=== PATIENT | female | born 1955 | race Caucasian/White ===

== ENCOUNTER → 2016-10-26 | Outpatient (CLI) | payer OTHER ==
[~2016-10-26] MED LIST: ASPEC81; CETI10TA84; CLTP; DYZ; INSDGI; LIPITOR; LISIPOW; MAGNESIUM; MULT-506; NVLGI; THYROXINE; TRIA3AER; ZINC
--- NOTE | 2016-10-26 16:46 | MAMMOGRAPHY REPORT ---
BILATERAL DIGITAL SCREENING MAMMOGRAM WITH CAD: 10/26/2016 CLINICAL HISTORY: Routine screening. Patient has no complaints. TECHNIQUE: Current study was also evaluated with a Computer Aided Detection (CAD) system. Bilatera l CC and MLO views were obtained. COMPARISON: Comparison is made to exams dated: 09/25/2015 mammogram, 08/08/2013 mammogram, 09/24/2014 m ammogram, 08/06/2012 mammogram, 08/02/2011 mammogram, and 03/02/2007 mammogram - [facility]. BREAST COMPOSITION: The tissue of both breasts is heterogeneously dense, which may obscure small ma sses. FINDINGS: No suspicious masses, calcifications, or areas of architectural distortion are noted in e ither breast. There has been no significant interval change compared to prior exams. Small nodular asymmetry seen within the right superior posterior breast on the MLO view is stable compared to the prior 2013 exam, and considered benign given long-term stability and felt to represent normal fibrog landular tissue. Bilateral benign-appearing calcifications are again noted. IMPRESSION: ACR BI-RADS CATEGORY 2: BENIGN There is no mammographic evidence of malignancy. A 1 year screening mammogram is recommended. The p atient will receive written notification of the results. Approximately 10% of breast cancers are not detected with mammography. A negative mammographic repor t should not delay biopsy if a clinically suggestive mass is present. Chrystal Cerna M.D. ah/:10/26/2016 15:51:00 Meat Molder: Michelle MICHAEL(Jorge)(Criss), [facility] letter sent: Normal 1/2 BI-RADS Code: ACR BI-RADS Category 2: Benign
== END | disposition home or self-care (01) ==
LOC: C.MAMM 07:22
PROVIDERS: ATTEND Internal Medicine
DX: Z12.31 Encounter for screening mammogram for malignant neoplasm of breast (principal)

== ENCOUNTER → 2016-11-28 | Outpatient (CLI) | payer OTHER | END | disposition home or self-care (01) | LOC: C.PAPS 14:10 | PROVIDERS: ATTEND Obstetrics & Gynecology | DX: Z12.4 Encounter for screening for malignant neoplasm of cervix (principal) ==

== ENCOUNTER → 2017-01-30 | Outpatient (CLI) | payer OTHER ==
[2017-01-30 12:18] LABS: URINE APPEARANCE CLEAR (CLEAR); URINE BILIRUBIN NEG (NEG); URINE COLOR YELLOW; URINE NITRITE NEG (NEG); UROBILINOGEN NEG (NEG)
[2017-01-30 12:31] LABS: MANUAL MICROSCOPIC REQUIRED? NO; REVIEW REQ? NO
[2017-01-30 12:49] LABS: ESTIMATED AVERAGE GLUCOSE 131 mg/dl; HA1C FLAG Normal (Normal)
[2017-01-30 13:13] LABS: ALT/SGPT 27 U/L (12-78); AST/SGOT 21 U/L (15-37); BLOOD UREA NITROGEN 24 mg/dl (7-18); BUN/CREATININE RATIO 27.9 (10-20); CALCIUM 9.6 mg/dl (8.5-10.1); CARBON DIOXIDE 30 mmol/L (21-32); CHLORIDE 103 mmol/L (98-107); CHOLESTEROL 197 mg/dl (0-200); CREATININE 0.85 mg/dl (0.60-1.20); GLUCOSE 96 mg/dl (70-99); POTASSIUM 4.4 mmol/L (3.5-5.1); SODIUM 138 mmol/L (136-145)
[2017-01-30 13:23] LABS: CHOLESTEROL/HDL RATIO 2.3; HDL CHOLESTEROL 86 mg/dl; LDL CHOLESTEROL CALCULATED 106 mg/dl; TRIGLYCERIDES 27 mg/dl (0-150); VERY LOW DENSITY LIPOPROT CALC 5 mg/dl
== END | disposition home or self-care (01) ==
LOC: C.LAB1850 10:15
PROVIDERS: ATTEND Internal Medicine
DX: E78.5 Hyperlipidemia, unspecified (principal); E03.9 Hypothyroidism, unspecified; E10.9 Type 1 diabetes mellitus without complications; N39.0 Urinary tract infection, site not specified

== ENCOUNTER → 2017-07-17 | Outpatient (CLI) | payer OTHER ==
[2017-07-17 16:30] LABS: BLOOD UREA NITROGEN 17 mg/dl (7-18); BUN/CREATININE RATIO 23.8 (10-20); CALCIUM 8.9 mg/dl (8.5-10.1); CARBON DIOXIDE 31 mmol/L (21-32); CHLORIDE 96 mmol/L (98-107); CREATININE 0.71 mg/dl (0.60-1.20); GLUCOSE 152 mg/dl (70-99); POTASSIUM 3.8 mmol/L (3.5-5.1); SODIUM 133 mmol/L (136-145)
== END | disposition home or self-care (01) ==
LOC: C.LAB1850 15:24
PROVIDERS: ATTEND Internal Medicine
DX: E55.9 Vitamin D deficiency, unspecified (principal); E10.9 Type 1 diabetes mellitus without complications; E03.9 Hypothyroidism, unspecified

== ENCOUNTER → 2017-12-26 | Outpatient (CLI) | payer OTHER ==
--- NOTE | 2017-12-27 14:22 | MAMMOGRAPHY REPORT ---
BILATERAL DIGITAL SCREENING MAMMOGRAM TOMOSYNTHESIS WITH CAD: 12/26/2017 CLINICAL HISTORY: Routine screening. TECHNIQUE: Breast tomosynthesis in addition to standard 2D mammography was performed. Current study was also evaluated with a Computer Aided Detection (CAD) system. COMPARISON: Comparison is made to exams dated: 10/26/2016 mammogram, 09/25/2015 mammogram, 09/24/2014 m ammogram, 08/08/2013 mammogram, 08/06/2012 mammogram, and 08/02/2011 mammogram - [facility]. BREAST COMPOSITION: The tissue of both breasts is heterogeneously dense, which may obscure small mas ses. FINDINGS: The parenchymal pattern is unchanged. No developing mass, architectural distortion or clus ter of suspicious microcalcifications is seen in either breast. IMPRESSION: ACR BI-RADS CATEGORY 2: BENIGN There is no mammographic evidence of malignancy. A 1 year screening mammogram is recommended. The pa tient will receive written notification of the results. Approximately 10% of breast cancers are not detected with mammography. A negative mammographic report should not delay biopsy if a clinically suggestive mass is present. Patricia Parker M.D. ay/:12/26/2017 19:13:43 Flexboard Operator: Kenny MICHAEL(R)(M), [facility] letter sent: Normal 1/2 BI-RADS Code: ACR BI-RADS Category 2: Benign
== END | disposition home or self-care (01) ==
LOC: C.MAMM 07:21
PROVIDERS: ATTEND Internal Medicine
DX: Z12.31 Encounter for screening mammogram for malignant neoplasm of breast (principal)

== ENCOUNTER 2023-06-02 13:31 | Observation (INO) ==
--- NOTE | 2023-06-02 13:36 | ED Triage Note ---
Date of Service June 02, 2023 History of Present Illness This patient was briefly evaluated while in triage. An abbreviated physical exam was performed. This patient is a 67-year-old Female who presents to the ED for evaluation of an increased blood sugar. The patient is concerned that she has COVID. She has also had nausea and vomiting as well. Patient does have an insulin pump at home, and administered insulin around 12:45. The patient reports that she has been feeling ill for the past few days. Patient has also had indigestion as well. Patient denies any current pain, reporting weakness. Physical Exam CONSTITUTIONAL: Healthy and well nourished. HEENT: No scleral icterus or conjunctival injection. RESPIRATORY: Clear to auscultation bilaterally with no wheezing, crackles, rhonchi or stridor. CARDIOVASCULAR: Regular rate and rhythm with no murmurs, rubs or gallops. GASTROINTESTINAL: Bowel sounds present in all quadrants. MUSCULOSKELETAL: Full range of motion of all joints without discomfort. INTEGUMENTARY: No rash or other significant dermatologic conditions noted. HEMATOLOGIC: No ecchymosis or petechiae. PSYCHIATRIC: Positive affect. NEUROLOGIC: No focal neurologic deficits noted. Initial orders for labs and / or imaging were placed and patient was placed in the waiting area until a bed is available. Please see further documentation for the full ED course.
[2023-06-02] MEDS ORDERED: SODIUM CHLORIDE 0.9% 1,000 ML IV SCH (14:15)
--- NOTE | 2023-06-02 14:27 | XRay Report ---
XR chest 1V not portable CLINICAL HISTORY: Weakness. COMPARISON STUDY: Chest radiograph February 18, 2019. FINDINGS: Lung volumes are normal. Lungs are clear. There is no pneumothorax or pleural effusion. Car diac size is normal. Mediastinal contours are normal. There is no evidence for pulmonary edema. IMPRESSION: No acute cardiopulmonary findings. ACT 112: Negative or not required by law. Electronically signed by: Maurilio Yancey M.D. 06/02/2023 2:25 PM
[2023-06-02 14:41] LABS: Alanine Aminotransferase 21 U/L (7-52); Albumin Globulin Ratio 1.4 (0.9-2); Albumin Level 4.5 gm/dl (3.4-5.0); Alkaline Phosphatase 70 U/L (34-104); Anion Gap 23 (3-11); Aspartate Aminotransferase 31 U/L (13-39); BUN Creatinine Ratio 34.5 (10-20); Bilirubin,Total 0.8 mg/dl (0.2-1.0); Blood Urea Nitrogen 41 mg/dl (6-23); Calcium 10.8 mg/dl (8.6-10.3); Carbon Dioxide 18 mmol/L (21-32); Chloride 91 mmol/L (98-107); Est GFR (African American) 54.7 ml/min; Est GFR (Non-African American) 47.2 ml/min; Globulin 3.3 gm/dl (2.5-4.0); Glucose 531 mg/dl (70-99(Fasting)); Potassium 4.4 mmol/L (3.5-5.1); Sodium 132 mmol/L (136-145); Total Protein 7.8 gm/dl (6.0-8.3)
[2023-06-02 14:45] LABS: Troponin I High Sensitivity 5.5 pg/ml (0-14)
[2023-06-02 14:53] LABS: Thyroid Stimulating Hormone 0.831 uIu/ml (0.300-4.500)
[2023-06-02 14:54] LABS: Influenza A virus by PCR Negative (Neg); Influenza B virus by PCR Negative (Neg); RSV by PCR Negative (Neg); SARS CoV2 RNA(COVID-19) Ceph NEGATIVE (Negative)
[2023-06-02] MEDS ORDERED: ONDANSETRON INJ 2 MG/ML 2 ML VIAL ONE (14:59)
[2023-06-02] MEDS ORDERED: SODIUM CHLORIDE 0.9% 1,000 ML IV ONE (15:00)
[2023-06-02] MEDS ORDERED: ONDANSETRON INJ 2 MG/ML 2 ML VIAL IV STA (15:00)
--- NOTE | 2023-06-02 15:00 | Emergency Department Note ---
Impression & Plan DKA (diabetic ketoacidosis), Ketonuria, Vomiting, Leukocytosis ED Provider Note HISTORY OF PRESENT ILLNESS: Patient is a 67-year-old female presenting with vomiting. Patient reports that she started vomiting at 10 AM this morning. Denies any abdominal pain. She is a type I diabetic on an insulin pump. She reports that her sugars have been running in the 400s for the last 48 hours. She gave a bolus at 1245. Denies any chest pain or shortness of breath. Denies any fevers. Denies any recent sick contact exposures ROS: as above PHYSICAL EXAM: Constitutional: Patient appears in no acute distress. Patient is actively vomiting HENT: Head: Normocephalic and atraumatic. Eyes: EOMI, PERRL Mouth/Throat: Mucous membranes moist. Neck: Trachea midline. Neck supple. Cardiovascular: RRR, No murmurs, rubs or gallops. Intact distal pulses. Pulmonary/Chest: No respiratory distress. Breath sounds clear and equal bilaterally. No wheezes or rales. Abdominal: Abdomen soft, no tenderness, rebound or guarding. Musculoskeletal: No edema, tenderness or deformity noted. Skin: Warm and dry. No rash, erythema, pallor or cyanosis Psychiatric: Appropriate mood and affect for situation. Neurological: Alert and keenly responsive. CN II-XII grossly intact, moving all extremities equally and fully. MDM: - Vitals signs stable. - History obtained via patient. Patient presents with reports she started vomiting earlier today. Denies any abdominal pain. She is a type I diabetic on an insulin pump. Reports her sugars have been running over 400 for the last 48 hours. Denies any fevers. Denies any recent sick contact exposures. - Chronic conditions affecting care: HTN; HLD; hypothyroidism; DM-1 - Differential diagnoses include, but are not limited to: Viral syndrome; acute cholecystitis; colitis; small bowel obstruction; electrolyte abnormality; DKA - Order placed for continuous cardiac monitoring. At this time, monitor showed rate of 101 bpm with normal sinus rhythm, per my interpretation. - External medical records reviewed. Patient's primary care visit note dated 04/26/2022 was reviewed. - Laboratory workup interpreted by myself showed leukocytosis (WC 17.28); elevated anion gap (23); hyperglycemia (glucose 531); normal magnesium; normal potassium; normal troponin; normal TSH - UA negative for infection, but noted to have significant ketonuria - COVID/flu/RSV negative - CXR negative for pneumonia, per my interpretation - VBG shows acidosis (pH 7.21) - CT abdomen/pelvis with IV contrast negative for acute pathology. - Patient given 2L NS in ER. Given 4 mg IV zofran for vomiting. - Patient's insulin pump was removed. She was transitioned to an insulin drip in the ER. She was given 1 L Plasma-Lyte bolus. - Discussion was had with social worker psychiatric about patient's case and need for admission - Hospitalist consulted for admission - Patient admitted to [facility] service for further evaluation and management. I provided 48 minutes of critical care time to this patient's care outside of billable procedures. ASSESSMENT AND PLAN: Diagnosis: DKA; vomiting; leukocytosis; ketonuria Plan: admit Past Med/Surg History Medical History (Updated 06/02/23 @ 18:04 by Amelia Garcia MD) Angioma Benign essential hypertension COVID-19 Diabetes mellitus type 1 INSULIN PUMP. Gastroparesis GERD (gastroesophageal reflux disease) Hyperlipidemia Hypothyroidism Insulin pump in place Rheumatoid arthritis Seborrheic keratosis Vitamin D deficiency Surgical History History of bilateral tubal ligation History of carpal tunnel release bilt History of colonoscopy History of esophagogastroduodenoscopy (EGD) Family History Mother Diabetes Allergies Hypothyroidism Myocardial infarction Family hx colonic polyps Stroke Sister Hypothyroidism Father Parkinson disease Son Allergies Daughter Allergies Other No family history of adverse response to anesthesia Denies family history of Ovarian cancer Prostate cancer Breast cancer Lung cancer Colorectal cancer Social History Smoking Status: Never smoker Cigarettes Per Day: 0; Second Hand Exposure: No (mom smoked); Do You Dip or Chew Tobacco: No; Hx Alcohol Use: No Hx Substance Use: No Preferred Language: Arabic Communication Ability: Effective Visual Impairment: Limited Hearing Ability: Normal Blind Hooker Required: No Beliefs That Will Affect Care: None marital status: Single Current Living Situation: Significant Other current occupational status: retired How many Children do You have: 2 Feels Safe at Home: Yes Childhood Exposure to Second-Hand Smoke: Yes caffeine: No Dental Care, Regularly: Yes Physical Activity Frequency: Daily Seatbelt Use: always Sunscreen Use: Yes Assistive Devices: Glasses Allergies Allergies Allergy/AdvReac Type Severity Reaction Status Date / Time ezetimibe [From Zetia] Allergy Intermediate heart Verified 06/02/23 17:32 racing nickel Allergy Mild Rash Verified 06/02/23 17:32 Home Meds Home Medications Medication Instructions Recorded Confirmed aspirin 81 mg tablet,delayed 81 mg PO QAM 12/24/18 06/02/23 release (Aspir-) biotin 1,000 mcg chewable tablet 1,000 mcg PO QAM 12/24/18 06/02/23 cetirizine 10 mg tablet (Zyrtec) 10 mg PO DAILY PRN Allergy Symptoms 12/24/18 06/02/23 cholecalciferol (vitamin D3) 25 1,000 unit PO QPM 12/24/18 06/02/23 mcg (1,000 unit) capsule (Vitamin D3) cyanocobalamin (vitamin B-12) 1,000 mcg PO QAM 12/24/18 06/02/23 1,000 mcg tablet (Vitamin B-12) lactobacillus combination no.4 3 3,000 mmu cells PO QPM 12/24/18 06/02/23 billion cell capsule (Probiotic) multivitamin 1 tab PO QAM 12/24/18 06/02/23 omega-3 acid ethyl esters 1 gram 1 cap PO BID 01/10/19 06/02/23 capsule folic acid 1 mg tablet 1 mg PO QPM 02/27/19 06/02/23 melatonin 3 mg capsule 3 mg PO HS PRN Sleep 02/07/20 06/02/23 Eye Ointment 1 applic PO HS 06/02/23 06/02/23 fluticasone propionate 50 1 spray intranasal DAILY PRN Nasal 06/02/23 06/02/23 mcg/actuation nasal Congestion spray,suspension (Allergy Relief (fluticasone)) methotrexate sodium 2.5 mg tablet 10 mg PO AMPM 06/02/23 06/02/23 Previous Rx's Medication Instructions Recorded blood sugar diagnostic #400 ea 03/03/21 blood sugar diagnostic (Predictus BioSciencesTouch #400 ea 10/11/22 Ultra Test strips) blood-glucose meter (Predictus BioSciencesTouch #1 ea 10/11/22 Ultra2 Meter) esomeprazole magnesium 20 mg 20 mg PO DAILY #90 caps 10/12/22 capsule,delayed release (Nexium) insulin pump cart,cont inf,BT #30 ea 10/12/22 (Omnipod Dash Pods (Gen 4) subcutaneous cartridge) blood sugar diagnostic (Blood #400 ea 10/17/22 Glucose Test strips) blood-glucose meter (Blood Glucose #1 ea 10/17/22 Monitoring kit) insulin aspart U-100 100 unit/mL 130 unit (1.3 mL) subcut DAILY 01/31/23 subcutaneous solution (Novolog #110 mL U-100 Insulin aspart) lisinopril 20 mg tablet 20 mg PO QAM #90 tabs 02/21/23 triamterene 37.5 1 tab PO QAM #90 tabs 03/13/23 mg-hydrochlorothiazide 25 mg tablet pravastatin 40 mg tablet 40 mg PO QPM #90 tabs 04/03/23 clobetasol 0.05 % topical ointment 1 applic topical BID #30 grams 05/17/23 levothyroxine 112 mcg tablet 112 mcg PO QAM #90 tabs 05/26/23 Results & Data (ED) Vital Signs Vital Signs - 24 hr 06/02/23 13:34 06/02/23 14:34 06/02/23 15:02 Temperature 36.7 C Temperature Source Temporal Artery Scan Pulse Rate 103 H 88 Pulse Rate [Apical] 101 H Pulse Rhythm Pulse Rhythm [Apical] Regular Pulse Strength [Apical] Normal Respiratory Rate 18 17 Respiratory Effort / Characteristics Non-Labored Respiratory Depth Normal Respiratory Pattern Regular Blood Pressure 124/54 L Blood Pressure [Right Arm] 131/57 L Blood Pressure Mean 77 Blood Pressure Mean [Right Arm] 81 Blood Pressure Position [Right Arm] Semi-fowlers Pulse Oximetry 98 97 Oxygen Delivery Method Room Air Room Air Sepsis Recent Fever Within 48 Hours No Sepsis New/Unexplained Change in Mental Status No Sepsis Action Taken by Nursing No Action Required 06/02/23 15:02 Temperature Temperature Source Pulse Rate 101 H Pulse Rate [Apical] Pulse Rhythm Regular Pulse Rhythm [Apical] Pulse Strength [Apical] Respiratory Rate 17 Respiratory Effort / Characteristics Respiratory Depth Respiratory Pattern Blood Pressure Blood Pressure [Right Arm] Blood Pressure Mean Blood Pressure Mean [Right Arm] Blood Pressure Position [Right Arm] Pulse Oximetry 98 Oxygen Delivery Method Room Air Sepsis Recent Fever Within 48 Hours Sepsis New/Unexplained Change in Mental Status Sepsis Action Taken by Nursing Laboratory Data 06/02/23 14:40 06/02/23 14:00 Lab Results 06/02/23 06/02/23 06/02/23 Range/Units 13:52 14:00 14:00 WBC Cancelled RBC Cancelled Hgb Cancelled Hct Cancelled MCV Cancelled MCH Cancelled MCHC Cancelled RDW Std Deviation Cancelled RDW Coeff of Ervin Cancelled Plt Count Cancelled MPV Cancelled Immature Gran % (Auto) Cancelled Neut % (Auto) Cancelled Lymph % (Auto) Cancelled Leslie % (Auto) Cancelled Eos % (Auto) Cancelled Baso % (Auto) Cancelled Neut # (Auto) Cancelled Lymph # (Auto) Cancelled Leslie # (Auto) Cancelled Eos # (Auto) Cancelled Baso # (Auto) Cancelled Immature Gran # (Auto) Cancelled Absolute Nucleated RBC Cancelled Nucleated RBC % (auto) Cancelled Neutrophils % (Manual) Cancelled Band Neutrophils % Cancelled Lymphocytes % (Manual) Cancelled Prolymphocyte % Cancelled Reactive Lymphs % (Man) Cancelled Monocytes % (Manual) Cancelled Eosinophils % (Manual) Cancelled Basophils % (Manual) Cancelled Metamyelocytes % (Man) Cancelled Myelocytes % (Man) Cancelled Promyelocytes % (Man) Cancelled Blast Cells % (Manual) Cancelled Plasma Cell % (Manual) Cancelled Other Cells % Cancelled Nucleated RBC % Cancelled Neutrophils # (Manual) Cancelled Band Neutrophils # Cancelled Total Absolute Neuts Cancelled Lymphocytes # (Manual) Cancelled Prolymphocyte # Cancelled Reactive Lymphs # Cancelled Total Abs Lymphocytes Cancelled Monocytes # (Manual) Cancelled Eosinophils # (Manual) Cancelled Basophils # (Manual) Cancelled Metamyelocytes # (Man) Cancelled Myelocytes # (Manual) Cancelled Promyelocytes # (Man) Cancelled Blast Cells # (Man) Cancelled Plasma Cell # (Manual) Cancelled Other Cells # Cancelled Nucleated RBCs # (Man) Cancelled Hypersegmented Neuts Cancelled Hyposegmented Neuts Cancelled Hypogranular Neuts Cancelled Large Granular Lymphs Cancelled # Lrg Granular Lymphs Cancelled Hairy Cells Cancelled Smudge Cells Cancelled Toxic Granulation Cancelled Toxic Vacuolation Cancelled Dohle Bodies Cancelled Say Rods Cancelled Platelet Estimate Cancelled Hypogranular Platelets Cancelled Giant Platelets Cancelled Platelet Satelliting Cancelled RBC Morphology Cancelled Polychromasia Cancelled Hypochromasia Cancelled Poikilocytosis Cancelled Basophilic Stippling Cancelled Anisocytosis Cancelled Microcytosis Cancelled Macrocytosis Cancelled Spherocytes Cancelled Pappenheimer Bodies Cancelled Sickle Cells Cancelled Target Cells Cancelled Tear Drop Cells Cancelled Ovalocytes Cancelled Stomatocytes Cancelled Gilliam-Eunola Bodies Cancelled Echinocytes Cancelled Acanthocytes (Spur) Cancelled Rouleaux Cancelled RBC Agglutinates Cancelled Schistocytes Cancelled Sezary Cell Cancelled PT (9.0-12.0) Seconds INR (0.9-1.1) VBG pH (7.36-7.41) VBG pCO2 (38-50) mmHg VBG pO2 mmHg VBG HCO3 mmol/L VBG O2 Saturation % VBG Base Excess mEq/L Sodium 132 L (136-145) mmol/L Potassium 4.4 (3.5-5.1) mmol/L Chloride 91 L (98-107) mmol/L Carbon Dioxide 18 L (21-32) mmol/L Anion Gap 23 H (3-11) BUN 41 H (6-23) mg/dl Creatinine 1.19 (0.6-1.2) mg/dl Est Cr Clr Drug Dosing Not Reportable Est GFR ( Amer) 54.7 ml/min Est GFR (Non-Af Amer) 47.2 ml/min BUN/Creatinine Ratio 34.5 H (10-20) Glucose 531 H* (70-99(Fasting)) mg/dl POC Glucose 498 H* (70-99) mg/dl Calcium 10.8 H (8.6-10.3) mg/dl Magnesium 2.0 (1.7-2.4) mg/dl Total Bilirubin 0.8 (0.2-1.0) mg/dl AST 31 (13-39) U/L ALT 21 (7-52) U/L Alkaline Phosphatase 70 (34-104) U/L Troponin I High Sens 5.5 (0-14) pg/ml Total Protein 7.8 (6.0-8.3) gm/dl Albumin 4.5 (3.4-5.0) gm/dl Globulin 3.3 (2.5-4.0) gm/dl Albumin/Globulin Ratio 1.4 (0.9-2) TSH 0.831 (0.300-4.500) uIu/ml Urine Color Urine Appearance (Clear) Urine pH (4.5-7.5) Ur Specific [place] (1.000-1.030) Urine Protein (Negative) Urine Glucose (UA) (Negative) Urine Ketones (Negative) Urine Blood (Negative) Urine Nitrite (Negative) Urine Bilirubin (Negative) Urine Urobilinogen (Negative) Ur Leukocyte Esterase (Negative) SARS-CoV-2 (PCR) (Negative) Influenza Type A (PCR) (Neg) Influenza Type B (PCR) (Neg) RSV (RT-PCR) (Neg) Blood Parasites ID Cancelled 06/02/23 06/02/23 06/02/23 Range/Units 14:00 14:00 14:40 WBC 17.28 H RBC 3.79 L Hgb 12.9 Hct 37.0 MCV 97.6 MCH 34.0 MCHC 34.9 RDW Std Deviation 45.8 RDW Coeff of Ervin 12.8 Plt Count 253 MPV 10.6 Immature Gran % (Auto) 0.5 Neut % (Auto) 87.0 Lymph % (Auto) 8.0 Leslie % (Auto) 4.1 Eos % (Auto) 0.1 Baso % (Auto) 0.3 Neut # (Auto) 15.04 H Lymph # (Auto) 1.38 Leslie # (Auto) 0.71 H Eos # (Auto) 0.01 Baso # (Auto) 0.05 Immature Gran # (Auto) 0.09 Absolute Nucleated RBC Nucleated RBC % (auto) Neutrophils % (Manual) Band Neutrophils % Lymphocytes % (Manual) Prolymphocyte % Reactive Lymphs % (Man) Monocytes % (Manual) Eosinophils % (Manual) Basophils % (Manual) Metamyelocytes % (Man) Myelocytes % (Man) Promyelocytes % (Man) Blast Cells % (Manual) Plasma Cell % (Manual) Other Cells % Nucleated RBC % Neutrophils # (Manual) Band Neutrophils # Total Absolute Neuts Lymphocytes # (Manual) Prolymphocyte # Reactive Lymphs # Total Abs Lymphocytes Monocytes # (Manual) Eosinophils # (Manual) Basophils # (Manual) Metamyelocytes # (Man) Myelocytes # (Manual) Promyelocytes # (Man) Blast Cells # (Man) Plasma Cell # (Manual) Other Cells # Nucleated RBCs # (Man) Hypersegmented Neuts Hyposegmented Neuts Hypogranular Neuts Large Granular Lymphs # Lrg Granular Lymphs Hairy Cells Smudge Cells Toxic Granulation Toxic Vacuolation Dohle Bodies Say Rods Platelet Estimate Hypogranular Platelets Giant Platelets Platelet Satelliting RBC Morphology Polychromasia Hypochromasia Poikilocytosis Basophilic Stippling Anisocytosis Microcytosis Macrocytosis Spherocytes Pappenheimer Bodies Sickle Cells Target Cells Tear Drop Cells Ovalocytes Stomatocytes Gilliam-Eunola Bodies Echinocytes Acanthocytes (Spur) Rouleaux RBC Agglutinates Schistocytes Sezary Cell PT 11.0 (9.0-12.0) Seconds INR 1.0 (0.9-1.1) VBG pH (7.36-7.41) VBG pCO2 (38-50) mmHg VBG pO2 mmHg VBG HCO3 mmol/L VBG O2 Saturation % VBG Base Excess mEq/L Sodium (136-145) mmol/L Potassium (3.5-5.1) mmol/L Chloride (98-107) mmol/L Carbon Dioxide (21-32) mmol/L Anion Gap (3-11) BUN (6-23) mg/dl Creatinine (0.6-1.2) mg/dl Est Cr Clr Drug Dosing Est GFR ( Amer) ml/min Est GFR (Non-Af Amer) ml/min BUN/Creatinine Ratio (10-20) Glucose (70-99(Fasting)) mg/dl POC Glucose (70-99) mg/dl Calcium (8.6-10.3) mg/dl Magnesium (1.7-2.4) mg/dl Total Bilirubin (0.2-1.0) mg/dl AST (13-39) U/L ALT (7-52) U/L Alkaline Phosphatase (34-104) U/L Troponin I High Sens (0-14) pg/ml Total Protein (6.0-8.3) gm/dl Albumin (3.4-5.0) gm/dl Globulin (2.5-4.0) gm/dl Albumin/Globulin Ratio (0.9-2) TSH (0.300-4.500) uIu/ml Urine Color Urine Appearance (Clear) Urine pH (4.5-7.5) Ur Specific [place] (1.000-1.030) Urine Protein (Negative) Urine Glucose (UA) (Negative) Urine Ketones (Negative) Urine Blood (Negative) Urine Nitrite (Negative) Urine Bilirubin (Negative) Urine Urobilinogen (Negative) Ur Leukocyte Esterase (Negative) SARS-CoV-2 (PCR) NEGATIVE (Negative) Influenza Type A (PCR) Negative (Neg) Influenza Type B (PCR) Negative (Neg) RSV (RT-PCR) Negative (Neg) Blood Parasites ID 06/02/23 06/02/23 06/02/23 Range/Units 15:07 15:10 15:16 WBC RBC Hgb Hct MCV MCH MCHC RDW Std Deviation RDW Coeff of Ervin Plt Count MPV Immature Gran % (Auto) Neut % (Auto) Lymph % (Auto) Leslie % (Auto) Eos % (Auto) Baso % (Auto) Neut # (Auto) Lymph # (Auto) Leslie # (Auto) Eos # (Auto) Baso # (Auto) Immature Gran # (Auto) Absolute Nucleated RBC Nucleated RBC % (auto) Neutrophils % (Manual) Band Neutrophils % Lymphocytes % (Manual) Prolymphocyte % Reactive Lymphs % (Man) Monocytes % (Manual) Eosinophils % (Manual) Basophils % (Manual) Metamyelocytes % (Man) Myelocytes % (Man) Promyelocytes % (Man) Blast Cells % (Manual) Plasma Cell % (Manual) Other Cells % Nucleated RBC % Neutrophils # (Manual) Band Neutrophils # Total Absolute Neuts Lymphocytes # (Manual) Prolymphocyte # Reactive Lymphs # Total Abs Lymphocytes Monocytes # (Manual) Eosinophils # (Manual) Basophils # (Manual) Metamyelocytes # (Man) Myelocytes # (Manual) Promyelocytes # (Man) Blast Cells # (Man) Plasma Cell # (Manual) Other Cells # Nucleated RBCs # (Man) Hypersegmented Neuts Hyposegmented Neuts Hypogranular Neuts Large Granular Lymphs # Lrg Granular Lymphs Hairy Cells Smudge Cells Toxic Granulation Toxic Vacuolation Dohle Bodies Say Rods Platelet Estimate Hypogranular Platelets Giant Platelets Platelet Satelliting RBC Morphology Polychromasia Hypochromasia Poikilocytosis Basophilic Stippling Anisocytosis Microcytosis Macrocytosis Spherocytes Pappenheimer Bodies Sickle Cells Target Cells Tear Drop Cells Ovalocytes Stomatocytes Gilliam-Eunola Bodies Echinocytes Acanthocytes (Spur) Rouleaux RBC Agglutinates Schistocytes Sezary Cell PT (9.0-12.0) Seconds INR (0.9-1.1) VBG pH 7.21 L (7.36-7.41) VBG pCO2 48 (38-50) mmHg VBG pO2 24 mmHg VBG HCO3 19 mmol/L VBG O2 Saturation < 60.0 % VBG Base Excess -8.7 mEq/L Sodium (136-145) mmol/L Potassium (3.5-5.1) mmol/L Chloride (98-107) mmol/L Carbon Dioxide (21-32) mmol/L Anion Gap (3-11) BUN (6-23) mg/dl Creatinine (0.6-1.2) mg/dl Est Cr Clr Drug Dosing Est GFR ( Amer) ml/min Est GFR (Non-Af Amer) ml/min BUN/Creatinine Ratio (10-20) Glucose (70-99(Fasting)) mg/dl POC Glucose 560 H* (70-99) mg/dl Calcium (8.6-10.3) mg/dl Magnesium (1.7-2.4) mg/dl Total Bilirubin (0.2-1.0) mg/dl AST (13-39) U/L ALT (7-52) U/L Alkaline Phosphatase (34-104) U/L Troponin I High Sens (0-14) pg/ml Total Protein (6.0-8.3) gm/dl Albumin (3.4-5.0) gm/dl Globulin (2.5-4.0) gm/dl Albumin/Globulin Ratio (0.9-2) TSH (0.300-4.500) uIu/ml Urine Color Dark Yellow Urine Appearance Clear (Clear) Urine pH 5.0 (4.5-7.5) Ur Specific [place] 1.024 (1.000-1.030) Urine Protein Negative (Negative) Urine Glucose (UA) 3+ H (Negative) Urine Ketones 3+ H (Negative) Urine Blood Negative (Negative) Urine Nitrite Negative (Negative) Urine Bilirubin Negative (Negative) Urine Urobilinogen Negative (Negative) Ur Leukocyte Esterase Negative (Negative) SARS-CoV-2 (PCR) (Negative) Influenza Type A (PCR) (Neg) Influenza Type B (PCR) (Neg) RSV (RT-PCR) (Neg) Blood Parasites ID 06/02/23 06/02/23 06/02/23 Range/Units 15:17 16:00 17:13 WBC RBC Hgb Hct MCV MCH MCHC RDW Std Deviation RDW Coeff of Ervin Plt Count MPV Immature Gran % (Auto) Neut % (Auto) Lymph % (Auto) Leslie % (Auto) Eos % (Auto) Baso % (Auto) Neut # (Auto) Lymph # (Auto) Leslie # (Auto) Eos # (Auto) Baso # (Auto) Immature Gran # (Auto) Absolute Nucleated RBC Nucleated RBC % (auto) Neutrophils % (Manual) Band Neutrophils % Lymphocytes % (Manual) Prolymphocyte % Reactive Lymphs % (Man) Monocytes % (Manual) Eosinophils % (Manual) Basophils % (Manual) Metamyelocytes % (Man) Myelocytes % (Man) Promyelocytes % (Man) Blast Cells % (Manual) Plasma Cell % (Manual) Other Cells % Nucleated RBC % Neutrophils # (Manual) Band Neutrophils # Total Absolute Neuts Lymphocytes # (Manual) Prolymphocyte # Reactive Lymphs # Total Abs Lymphocytes Monocytes # (Manual) Eosinophils # (Manual) Basophils # (Manual) Metamyelocytes # (Man) Myelocytes # (Manual) Promyelocytes # (Man) Blast Cells # (Man) Plasma Cell # (Manual) Other Cells # Nucleated RBCs # (Man) Hypersegmented Neuts Hyposegmented Neuts Hypogranular Neuts Large Granular Lymphs # Lrg Granular Lymphs Hairy Cells Smudge Cells Toxic Granulation Toxic Vacuolation Dohle Bodies Say Rods Platelet Estimate Hypogranular Platelets Giant Platelets Platelet Satelliting RBC Morphology Polychromasia Hypochromasia Poikilocytosis Basophilic Stippling Anisocytosis Microcytosis Macrocytosis Spherocytes Pappenheimer Bodies Sickle Cells Target Cells Tear Drop Cells Ovalocytes Stomatocytes Gilliam-Eunola Bodies Echinocytes Acanthocytes (Spur) Rouleaux RBC Agglutinates Schistocytes Sezary Cell PT (9.0-12.0) Seconds INR (0.9-1.1) VBG pH (7.36-7.41) VBG pCO2 (38-50) mmHg VBG pO2 mmHg VBG HCO3 mmol/L VBG O2 Saturation % VBG Base Excess mEq/L Sodium (136-145) mmol/L Potassium (3.5-5.1) mmol/L Chloride (98-107) mmol/L Carbon Dioxide (21-32) mmol/L Anion Gap (3-11) BUN (6-23) mg/dl Creatinine (0.6-1.2) mg/dl Est Cr Clr Drug Dosing Est GFR ( Amer) ml/min Est GFR (Non-Af Amer) ml/min BUN/Creatinine Ratio (10-20) Glucose (70-99(Fasting)) mg/dl POC Glucose 540 H* 514 H* 454 H* (70-99) mg/dl Calcium (8.6-10.3) mg/dl Magnesium (1.7-2.4) mg/dl Total Bilirubin (0.2-1.0) mg/dl AST (13-39) U/L ALT (7-52) U/L Alkaline Phosphatase (34-104) U/L Troponin I High Sens (0-14) pg/ml Total Protein (6.0-8.3) gm/dl Albumin (3.4-5.0) gm/dl Globulin (2.5-4.0) gm/dl Albumin/Globulin Ratio (0.9-2) TSH (0.300-4.500) uIu/ml Urine Color Urine Appearance (Clear) Urine pH (4.5-7.5) Ur Specific [place] (1.000-1.030) Urine Protein (Negative) Urine Glucose (UA) (Negative) Urine Ketones (Negative) Urine Blood (Negative) Urine Nitrite (Negative) Urine Bilirubin (Negative) Urine Urobilinogen (Negative) Ur Leukocyte Esterase (Negative) SARS-CoV-2 (PCR) (Negative) Influenza Type A (PCR) (Neg) Influenza Type B (PCR) (Neg) RSV (RT-PCR) (Neg) Blood Parasites ID Administered Medications Insulin Human Regular 250 (units/ Sodium Chloride) 250 mls @ 6 mls/hr IV .Q24H [facility]; Protocol Stop: 07/02/23 15:14 Last Admin: 06/02/23 17:29 Dose: 7.2 units/hr, 7.2 mls/hr Documented By: KATHY Co-signed By: BAILEY Titration: 06/02/23 17:29 Dose: 6 units/hr, 6 mls/hr Documented By: KATHY Co-signed By: BAILEY Admin: 06/02/23 16:06 Dose: 6 units/hr, 6 mls/hr Documented By: KATHY Co-signed By: JESSICA Discontinued Medications Sodium Chloride (Nss) 1,000 mls @ 999 mls/hr IV .Q1H1M BETO Stop: 06/02/23 15:15 Last Infusion: 06/02/23 17:33 Dose: 0 mls/hr Documented By: Admin: 06/02/23 15:22 Dose: 999 mls/hr Documented By: KATHY Sodium Chloride (Nss) 1,000 mls @ 999 mls/hr IV .Q1H1M ONE Stop: 06/02/23 16:00 Last Infusion: 06/02/23 17:33 Dose: 0 mls/hr Documented By: Admin: 06/02/23 15:21 Dose: 999 mls/hr Documented By: KATHY Parenteral Electrolytes (Plasma-Lyte A Ph 7.4) 1,000 mls @ 999 mls/hr IV .Q1H1M ONE Stop: 06/02/23 16:07 Last Infusion: 06/02/23 17:33 Dose: 0 mls/hr Documented By: Admin: 06/02/23 16:33 Dose: 999 mls/hr Documented By: KATHY Insulin Human Regular (Novolin-R Bolus From Bag) 6 units IV ONE ONE Stop: 06/02/23 15:16 Last Admin: 06/02/23 16:12 Dose: 6 units Documented By: KATHY Co-signed By: JESSICA Ioversol (Optiray 320 100ml) 90 ml IV ONCE ONE Stop: 06/02/23 15:46 Last Admin: 06/02/23 15:45 Dose: 90 ml Documented By: MIA Ondansetron HCl (Ondansetron Inj 2 Mg/Ml 2 Ml Vial) Confirm Administered Dose 4 mg .ROUTE .STK-MED ONE Stop: 06/02/23 15:00 Last Admin: 06/02/23 15:05 Dose: Not Given Documented By: KATHY Ondansetron HCl (Ondansetron Inj 2 Mg/Ml 2 Ml Vial) 4 mg IV NOW STA Stop: 06/02/23 15:01 Last Admin: 06/02/23 15:13 Dose: 4 mg Documented By: KATHY Imaging Data Radiologist's Impression: Chest X-Ray 06/02/23 13:36 XR chest 1V not portable CLINICAL HISTORY: Weakness. COMPARISON STUDY: Chest radiograph February 18, 2019. FINDINGS: Lung volumes are normal. Lungs are clear. There is no pneumothorax or pleural effusion. Cardiac size is normal. Mediastinal contours are normal. There is no evidence for pulmonary edema. IMPRESSION: No acute cardiopulmonary findings. ACT 112: Negative or not required by law. Electronically signed by: Maurilio Yancey M.D. 06/02/2023 2:25 PM Abdomen/Pelvis CT 06/02/23 15:[address] WITH IV CONTRAST CT DOSE: 626.35 mGy.cm HISTORY: Acute generalized abdominal pain with nausea and vomiting vomiting; abdominal pain TECHNIQUE: Multiaxial CT images of the abdomen and pelvis were performed following the IV administration of 90 cc of Optiray, A dose lowering technique was utilized adhering to the principles of ALARA. COMPARISON STUDY: None. FINDINGS: Limited study without the use of enteric contrast. No acute process within the imaged lower chest. There is an ill-defined 7 mm subsolid nodular density of the basal right lower lobe on image 34 series 3 with an adjacent 4 mm subpleural nodular density of the right lower lobe on image 26. 4 mm nodule of the lateral segment right middle lobe. No free air. Unremarkable spleen, pancreas, gallbladder and adrenal glands. Hepatic steatosis. Patency of the hepatic and portal veins. Unremarkable kidneys. No hy dronephrosis. Decompressed urinary bladder with wall thickening. Calcified uterine fibroids. Possible fluid filled scar within the anterior uterus. 1.7 cm cystic structure of the right adnexum is nonspecific however favored to be benign. Atherosclerosis of aorta. No lymphadenopathy. No bowel obstruction or bowel wall thickening. Moderate fecal retention is most pronounced in the rectum. Colonic diverticulosis. The visualized appendix appears noninflamed. Mild mesenteric and body wall edema. Tiny fat filled umbilical hernia. No acute fracture. IMPRESSION: 1. No bowel obstruction or bowel wall thickening. 2. Moderate colonic fecal retention. 3. There are a few pulmonary pulmonary nodules within the right lung base measuring up to 7 mm. Six-month follow-up chest CT recommended. ACT 112: Negative or not required by law. The above report was generated using voice recognition software. It may contain grammatical, syntax or spelling errors. Electronically signed by: Jordin Segura M.D. 06/02/2023 4:02 PM Discharge Plan Visit Data Chief Complaint: Illness Stated Complaint: possible covid, low sugar ED Provider: Amelia Garcia Discharge Problem: DKA (diabetic ketoacidosis), Ketonuria, Vomiting, Leukocytosis Forms Stand Alone Forms: My [facility] [email or web address] Prescriptions Prescriptions: No Action (DME) OneTouch Ultra Blue Test Strip Strip See Rx Instructions .ROUTE .MEDSUPPLY Qty: 400 3RF Rx Instructions: Test 4 times daily (DME) blood-glucose meter [OneTouch Ultra2 Meter] Misc See Rx Instructions .Route Qty: 1 0RF Rx Instructions: LIFESCAN ONETOUCH DIRECTED (DME) OneTouch Ultra Test Strip See Rx Instructions .Route Qty: 400 2RF Rx Instructions: LIFE SCAN Test 4 times daily Dx E11.9 Onetouch esomeprazole magnesium [Nexium] 20 mg capsule,delayed release(DR/EC) 20 mg PO DAILY Qty: 90 3RF Patient Comments: pt states she is recently not taking this med (DME) Omnipod Dash Pods (Gen 4) Cartridge See Rx Instructions .Route Qty: 30 5RF Rx Instructions: Change pod every 3 days (DME) Blood Glucose Test Strip See Rx Instructions .Route Qty: 400 0RF Rx Instructions: LIFESCAN Test 4 times daily (DME) blood-glucose meter [Blood Glucose Monitoring] Kit See Rx Instructions .Route Qty: 1 0RF Rx Instructions: LIFESCAN MONITOR Test 4 times daily insulin aspart U-100 [Novolog U-100 Insulin aspart] 100 unit/mL solution 130 unit subcut DAILY Qty: 110 3RF lisinopril 20 mg tablet 20 mg PO QAM Qty: 90 3RF triamterene-hydrochlorothiazid 37.5-25 mg tablet 1 tab PO QAM Qty: 90 3RF pravastatin 40 mg tablet 40 mg PO QPM Qty: 90 3RF clobetasol 0.05 % ointment 1 applic topical BID Qty: 30 1RF levothyroxine 112 mcg tablet 112 mcg PO QAM Qty: 90 1RF omega-3 acid ethyl esters 1 gram capsule 1 cap PO BID folic acid 1 mg tablet 1 mg PO QPM melatonin 3 mg capsule 3 mg PO HS PRN (Reason: Sleep) multivitamin Tablet 1 tab PO QAM cetirizine [Zyrtec] 10 mg Tablet 10 mg PO DAILY PRN (Reason: Allergy Symptoms) cyanocobalamin (vitamin B-12) [Vitamin B-12] 1,000 mcg Tablet 1,000 mcg PO QAM aspirin [Aspir-81] 81 mg Tablet,Delayed Release (Dr/Ec) 81 mg PO QAM cholecalciferol (vitamin D3) [Vitamin D3] 1,000 unit Capsule 1,000 unit PO QPM Probiotic 3 billion cell Capsule 3,000 mmu cells PO QPM biotin 1,000 mcg Tablet,Chewable 1,000 mcg PO QAM methotrexate sodium 2.5 mg tablet 10 mg PO AMPM Rx Instructions: Take q fri fluticasone propionate [Allergy Relief (fluticasone)] 50 mcg/actuation spray,suspension 1 spray intranasal DAILY PRN (Reason: Nasal Congestion) Rx Instructions: administer into each nostril Eye Ointment 1 applic PO HS Referrals Referrals: ProAris MD [Primary Care Provider] -
[2023-06-02 15:02] LABS: Basophils # (auto) 0.05 K/uL (0.00-0.20); Basophils % (auto) 0.3 %; Eosinophils # (auto) 0.01 K/uL (0.00-0.50); Eosinophils % (auto) 0.1 %; Hemoglobin 12.9 g/dl (12.0-16.0); Immature Granulocytes # (auto) 0.09 K/uL (0.01-0.20); Immature Granulocytes % (auto) 0.5 %; Lymphocytes # (auto) 1.38 K/uL (1.20-3.40); Mean Corpuscular Hgb Conc 34.9 g/dL (32.0-36.0); Mean Corpuscular Volume 97.6 fL (80.0-100.0); Mean Platelet Volume 10.6 fL (9.4-12.4); Monocytes # (auto) 0.71 K/uL (0.11-0.59); Monocytes % (auto) 4.1 %; Neutrophils # (auto) 15.04 K/uL (1.40-6.50); Platelet Count 253 K/uL (130-400); RDW Coefficient of Variation 12.8 % (11.5-14.5); RDW Standard Deviation 45.8 fL (36.4-46.3); Red Blood Count 3.79 M/uL (4.20-5.40); White Blood Count 17.28 K/ul (4.8-10.8)
[2023-06-02] MEDS ORDERED: DEXTROSE 50% 50 ML SYRINGE IV PRN (15:07)
[2023-06-02] MEDS ORDERED: GLUCOSE 10 TAB/TUBE PO PRN (15:07)
[2023-06-02] MEDS ORDERED: STAT IV Infusion **Titration per Protocol STA (15:07)
[2023-06-02] MEDS ORDERED: GLUCAGON FOR INJ 1 MG VIAL SQ PRN (15:07)
[2023-06-02] MEDS ORDERED: GLUCOSE 40% GEL 15 GM TUBE PO PRN (15:07)
[2023-06-02] MEDS ORDERED: CARBOHYDRATES FOR HYPOGLYCEMIA PO PRN (15:07)
[2023-06-02] MEDS ORDERED: PLASMA-LYTE A 1,000 ML IV ONE (15:07)
[2023-06-02] MEDS ORDERED: NovoLIN-R BOLUS FROM BAG IV ONE (15:15)
[2023-06-02 15:16] LABS: Base Excess VBG -8.7 mEq/L; HCO3 VBG 19 mmol/L; Oxygen Saturation VBG < 60.0 %; PCO2 VBG 48 mmHg (38-50); PO2 VBG 24 mmHg; pH VBG 7.21 (7.36-7.41)
[2023-06-02 15:37] LABS: Appearance Urine Clear (Clear); Bilirubin Urine Negative (Negative); Blood Urine Negative (Negative); Color Urine Dark Yellow; Glucose Urine UA 3+ (Negative); Ketones Urine 3+ (Negative); Leukocyte Esterase Urine Negative (Negative); Nitrite Urine Negative (Negative); Protein Urine Negative (Negative); Specific Gravity Urine 1.024 (1.000-1.030); Urobilinogen Urine Negative (Negative)
[2023-06-02] MEDS ORDERED: OPTIRAY 320 100ml IV ONE (15:45)
[2023-06-02] MEDS ORDERED: DKA GOAL RANGE 150-250 mg/dl ONE (15:56)
--- NOTE | 2023-06-02 16:03 | CT Scan Report ---
ABDOMEN AND PELVIS CT WITH IV CONTRAST CT DOSE: 626.35 mGy.cm HISTORY: Acute generalized abdominal pain with nausea and vomiting vomiting; abdominal pain TECHNIQUE: Multiaxial CT images of the abdomen and pelvis were performed following the IV administrat ion of 90 cc of Optiray, A dose lowering technique was utilized adhering to the principles of ALARA. COMPARISON STUDY: None. FINDINGS: Limited study without the use of enteric contrast. No acute process within the imaged lower chest. There is an ill-defined 7 mm subsolid nodular density of the basal right lower lobe on image 34 series 3 with an adjacent 4 mm subpleural nodular density of the right lower lobe on image 26. 4 m m nodule of the lateral segment right middle lobe. No free air. Unremarkable spleen, pancreas, gallbladder and adrenal glands. Hepatic steatosis. Patency of the hepa tic and portal veins. Unremarkable kidneys. No hydronephrosis. Decompressed urinary bladder with wall thickening. Calcified uterine fibroids. Possible fluid filled scar within the anterior [place] ezkeiel. 1.7 cm cystic structure of the right adnexum is nonspecific however favored to be benign. Athero sclerosis of aorta. No lymphadenopathy. No bowel obstruction or bowel wall thickening. Moderate fecal retention is most pronounced in the rec [place]. Colonic diverticulosis. The visualized appendix appears noninflamed. Mild mesenteric and body wa ll edema. Tiny fat filled umbilical hernia. No acute fracture. IMPRESSION: 1. No bowel obstruction or bowel wall thickening. 2. Moderate colonic fecal retention. 3. There are a few pulmonary pulmonary nodules within the right lung base measuring up to 7 mm. Six-m onth follow-up chest CT recommended. ACT 112: Negative or not required by law. The above report was generated using voice recognition software. It may contain grammatical, syntax o r spelling errors. Electronically signed by: Jordin Segura M.D. 06/02/2023 4:02 PM
[2023-06-02] MEDS: INSULIN REGULAR 250 UNITS in SODIUM CHLORIDE 0.9% 247.5 ML IV SCH ×4 (16:06→20:25)
[2023-06-02] MEDS ORDERED: PENDING 1/2NSS+20mEq KCL IVF SCH (16:15)
[2023-06-02] MEDS ORDERED: PENDING D5 1/2NS+20mEq KCL IVF SCH (16:15)
--- NOTE | 2023-06-02 17:22 | History & Physical Report ---
Date of Service June 02, 2023 Assessment & Plan (1) Type 1 diabetes mellitus with long-term current use of insulin: Plan: Type 1 diabetes mellitus, DKA Elevated anion gap, low bicarb, acidosis at 7.21, and hyperglycemic to 530s on admission Patient is a reliable historian, reports that she uses her insulin pump and is very careful to keep her blood sugars under good control. She has never been in DKA before She reports Monday blood sugars were high 200s, came down and then were elevated again in the 300s, has been difficult to control , and then she woke up this morning with blood sugars over 400s and with nausea/vomiting She reports that 1 vial of insulin seemed a little bit cloudy which was unusual? Bad batch She denies infectious symptoms other than a "very slight rare dry cough ". No dysuria, denies abdominal pain, no cough, no skin wounds/cellulitis ? Bad batch of insulin as provoking factor versus occult infection without clear source. Given night sweats and leukocytosis blood cultures, Lyme, Anaplasma added. No obvious infection on CT or x-ray. Afebrile We will continue DKA protocol, add D5/potassium as needed per protocol. BMP/mag/Phos/VBG every 4 (2) Hyperlipidemia: Plan: Stable, continues to (3) Hypothyroidism: Plan: Stable, continue Synthroid (4) Rheumatoid arthritis: Plan: Methotrexate held while evaluating for potential and (5) GERD (gastroesophageal reflux disease): Plan: Denies epigastric pain, melena, hematochezia, or hematemesis Continue PPI daily while inpatient, can convert to proton (6) Benign essential hypertension: Plan: Lisinopril, triam-hctz Operatively held with severe volume depletion and DKA, borderline MAURICIO Trend creatinine daily. Baseline is 0.7, 1.2 on admission Anticipate resuming 06/03 Plan DVT prophylaxis: Heparin Diet: N.p.o. with sips and chips CODE STATUS: DNR, DNI. Discussed with patient at bedside Disposition: PCU for DKA History of Present Illness Primary Care Provider: Aris Denton MD Tayler is a 67-year-old female with a past medical history of type 1 diabetes, benign essential hypertension, gastroparesis, hyperlipidemia, hypothyroidism who presents with hyperglycemia over the last 2 days which is also associated with nausea and vomiting.She has received 3 L of crystalloid and insulin drip has been initiated in the ER. She is admitted for treatment of DKA. Per ER review Leukocytosis of 17, acidotic at 7.21, bicarb is depressed at 18 with an anion gap of 23, BSG 530s. CTA/P shows moderate fecal retention, and pulmonary nodules requiring 6-month follow-up CT but no acute infection or process. CXR is without acute findings. Respiratory quad screen is negative. UA is not infected appearing. ___ Per Pt Peeing much less just since this morning. Previously peeing more last 2 days and 3- and 6am, then had not peed since. +night sweats. "Very minimal" dry cough. No sob. no dyspnea. No chest pain or chest pressure. +N/v, nonbloody. Denies abdominal pain. No diarrhea or constipation. No rash, skin changes. No tick bites. Uses an insulin pump for T1DM. Deactivated at time of hospitalist assessment. Basal 13.45u per day. Pt is not sure Carb ratio is 15. CF 70. Emesis nonbloody, nonbilious. Pt is methotrexate BID for RA. Did not take this today/yesterday. Medical History: Reviewed Medications: Reviewed Surgical History: Reviewed Family history: Reviewed Allergies: Reviewed Social History: No mtobacco/etoh Code Status: DNR/DNI, confirmed with pt at bedside Allergies Allergy/AdvReac Type Severity Reaction Status Date / Time ezetimibe [From Zetia] Allergy Intermediate heart Verified 06/02/23 17:32 racing nickel Allergy Mild Rash Verified 06/02/23 17:32 Home Medications Medication Instructions Recorded Confirmed Type aspirin 81 mg tablet,delayed 81 mg PO QAM 12/24/18 06/02/23 History release (Aspir-) biotin 1,000 mcg chewable tablet 1,000 mcg PO QAM 12/24/18 06/02/23 History cetirizine 10 mg tablet (Zyrtec) 10 mg PO DAILY PRN Allergy Symptoms 12/24/18 06/02/23 History cholecalciferol (vitamin D3) 25 1,000 unit PO QPM 12/24/18 06/02/23 History mcg (1,000 unit) capsule (Vitamin D3) cyanocobalamin (vitamin B-12) 1,000 mcg PO QAM 12/24/18 06/02/23 History 1,000 mcg tablet (Vitamin B-12) lactobacillus combination no.4 3 3,000 mmu cells PO QPM 12/24/18 06/02/23 History billion cell capsule (Probiotic) multivitamin 1 tab PO QAM 12/24/18 06/02/23 History omega-3 acid ethyl esters 1 gram 1 cap PO BID 01/10/19 06/02/23 History capsule folic acid 1 mg tablet 1 mg PO QPM 02/27/19 06/02/23 History melatonin 3 mg capsule 3 mg PO HS PRN Sleep 02/07/20 06/02/23 History blood sugar diagnostic #400 ea 03/03/21 06/02/23 Rx blood sugar diagnostic (OneTouch #400 ea 10/11/22 06/02/23 Rx Ultra Test strips) blood-glucose meter (OneTouch #1 ea 10/11/22 06/02/23 Rx Ultra2 Meter) esomeprazole magnesium 20 mg 20 mg PO DAILY #90 caps 10/12/22 06/02/23 Rx capsule,delayed release (Nexium) insulin pump cart,cont inf,BT #30 ea 10/12/22 06/02/23 Rx (Omnipod Dash Pods (Gen 4) subcutaneous cartridge) blood sugar diagnostic (Blood #400 ea 10/17/22 06/02/23 Rx Glucose Test strips) blood-glucose meter (Blood Glucose #1 ea 10/17/22 06/02/23 Rx Monitoring kit) insulin aspart U-100 100 unit/mL 130 unit (1.3 mL) subcut DAILY 01/31/23 06/02/23 Rx subcutaneous solution (Novolog #110 mL U-100 Insulin aspart) lisinopril 20 mg tablet 20 mg PO QAM #90 tabs 02/21/23 06/02/23 Rx triamterene 37.5 1 tab PO QAM #90 tabs 03/13/23 06/02/23 Rx mg-hydrochlorothiazide 25 mg tablet pravastatin 40 mg tablet 40 mg PO QPM #90 tabs 04/03/23 06/02/23 Rx clobetasol 0.05 % topical ointment 1 applic topical BID #30 grams 05/17/23 06/02/23 Rx levothyroxine 112 mcg tablet 112 mcg PO QAM #90 tabs 05/26/23 06/02/23 Rx Eye Ointment 1 applic PO HS 06/02/23 06/02/23 History fluticasone propionate 50 1 spray intranasal DAILY PRN Nasal 06/02/23 06/02/23 History mcg/actuation nasal Congestion spray,suspension (Allergy Relief (fluticasone)) methotrexate sodium 2.5 mg tablet 10 mg PO AMPM 06/02/23 06/02/23 History Past Med/Surg History Medical History (Updated 06/02/23 @ 17:49 by Lexa Evans MD) Angioma Benign essential hypertension COVID-19 Diabetes mellitus type 1 INSULIN PUMP. Gastroparesis GERD (gastroesophageal reflux disease) Hyperlipidemia Hypothyroidism Insulin pump in place Rheumatoid arthritis Seborrheic keratosis Vitamin D deficiency Surgical History History of bilateral tubal ligation History of carpal tunnel release bilt History of colonoscopy History of esophagogastroduodenoscopy (EGD) Family History Mother Diabetes Allergies Hypothyroidism Myocardial infarction Family hx colonic polyps Stroke Sister Hypothyroidism Father Parkinson disease Son Allergies Daughter Allergies Other No family history of adverse response to anesthesia Denies family history of Ovarian cancer Prostate cancer Breast cancer Lung cancer Colorectal cancer Social History Smoking Status: Never smoker Cigarettes Per Day: 0; Second Hand Exposure: No (mom smoked); Do You Dip or Chew Tobacco: No; Hx Alcohol Use: No Hx Substance Use: No Preferred Language: Yakut Communication Ability: Effective Visual Impairment: Limited Hearing Ability: Normal Director Traffic And Planning Required: No Beliefs That Will Affect Care: None marital status: Single Current Living Situation: Significant Other current occupational status: retired How many Children do You have: 2 Feels Safe at Home: Yes Childhood Exposure to Second-Hand Smoke: Yes caffeine: No Dental Care, Regularly: Yes Physical Activity Frequency: Daily Seatbelt Use: always Sunscreen Use: Yes Assistive Devices: Glasses Physical Exam Physical Exam: General: A&Ox3. NAD. Cooperative. HEENT: Atraumatic, normocephalic. MM dry. Vision/hearing intact. No photosensitivity or nuchal rigidity. Pulm: CTAB A&P. -wheezes, -rales, -rhonchi. Symmetrical chest rise. No increased work of breathing. No respiratory distress. Cardiac:Regular, tachycardic. -mrg. Radial pulses intact and symmetrical. Abdominal: Nontender, nondistended, soft. BS present. Ext: warm, dry. no rashes. distal extremity strength and sensation intact without asymmetry/deficit Results & Data Results & Data Vital Signs (Past 12 Hours) Vital Signs Temp Pulse Pulse Resp BP BP Pulse Ox 06/02/23 15:02 101 H 17 98 06/02/23 15:02 101 H 17 131/57 L 97 06/02/23 14:34 88 06/02/23 13:34 36.7 C 103 H 18 124/54 L 98 O2 Del Method 06/02/23 15:02 Room Air 06/02/23 15:02 Room Air 06/02/23 14:34 06/02/23 13:34 Room Air PG Care Time/CCT Total # of Minutes Spent Total Time Spent with Patient: Total time spent is greater than 50% in coordination of care (as documented) at patient's floor/unit and/or counseling patient: Coding Level of Care Code 96572 INT INP/OBS CARE 3/75MIN Diagnoses Type 1 diabetes mellitus with long-term current use of insulin E10.9 Hyperlipidemia E78.5 Hypothyroidism E03.9 Rheumatoid arthritis M06.9 GERD (gastroesophageal reflux disease) K21.9 Benign essential hypertension I10
[2023-06-02] MEDS ORDERED: POTASSIUM CHLORIDE 20 MEQ in PLASMA-LYTE A 1,000 ML IV SCH (18:00)
[2023-06-02 19:19] LABS: Lyme Ab IgG w/WB Rflx Negative (Negative); Lyme Ab IgM w/WB Rflx Negative (Negative)
[2023-06-02] MEDS: INSULIN ASPART PER UNIT CHARGE SC SCH ×2 (20:34→21:57)
[2023-06-02 21:57] LABS: BUN Creatinine Ratio 37.6 (10-20); Calcium 9.1 mg/dl (8.6-10.3); Creatinine Clr Calc Pharmacy 48.6 ml/min; Est GFR (African American) 66.7 ml/min; Est GFR (Non-African American) 57.6 ml/min; Magnesium 1.8 mg/dl (1.7-2.4); Phosphorus 1.8 mg/dl (2.5-4.9); Potassium 3.4 mmol/L (3.5-5.1)
[2023-06-02] MEDS: D5W AND 1/2NSS + 20MEQ KCL 20 MEQ/1,000 ML BAG IV SCH (22:04)
[2023-06-02] MEDS: ACETAMINOPHEN 325 MG TAB PO PRN (23:25)
[2023-06-03 00:47] LABS: BUN Creatinine Ratio 36.8 (10-20); Calcium 8.7 mg/dl (8.6-10.3); Creatinine Clr Calc Pharmacy 51.7 ml/min; Est GFR (African American) 71.8 ml/min; Magnesium 1.8 mg/dl (1.7-2.4); Phosphorus 2.6 mg/dl (2.5-4.9); Potassium 3.7 mmol/L (3.5-5.1)
[2023-06-03 04:46] LABS: BUN Creatinine Ratio 36.3 (10-20); Calcium 8.7 mg/dl (8.6-10.3); Est GFR (African American) 75.7 ml/min; Est GFR (Non-African American) 65.3 ml/min; Magnesium 1.9 mg/dl (1.7-2.4); Potassium 3.7 mmol/L (3.5-5.1)
[2023-06-03] MEDS: ACETAMINOPHEN 325 MG TAB PO PRN ×3 (05:56→18:32)
[2023-06-03] MEDS: D5W AND 1/2NSS + 20MEQ KCL 20 MEQ/1,000 ML BAG IV SCH (05:57)
--- NOTE | 2023-06-03 07:35 | Hospitalist Progress Note ---
Date of Service June 03, 2023 Assessment & Plan (1) Type 1 diabetes mellitus with long-term current use of insulin: (2) Hyperlipidemia: (3) Hypothyroidism: (4) Rheumatoid arthritis: (5) GERD (gastroesophageal reflux disease): (6) Benign essential hypertension: Plan Type 1 diabetes mellitus, DKA -Elevated anion gap, low bicarb, acidosis at 7.21, and hyperglycemic to 530s on admission - uses insulin pump at home, baseline - No nausea, no vomiting since admission She denies infectious symptoms other than a "very slight rare dry cough ". No dysuria, denies abdominal pain, no cough, no skin wounds/cellulitis On DKA protocol -Insulin drip -B -Will discontinue insulin drip today and transition to SQ insulin - Negative Covid 19, Lyme disease, Anaplasma. - Anion gap resolved: 3, Bicarb: 23 - Progressed diet today -Continue monitoring glucose -CMP am [place] essential HTN - Lisinopril, triam-hctz -Operatively held with severe volume depletion and DKA, borderline MAUIRCIO Trend creatinine daily. Baseline is 0.7, 1.2 on admission Anticipate resuming 06/04 Hyperlipidemia -Continue home meds Hypothyroidism - Continue Synthroid Rheumatoid arthritis -Methotrexate hold on admission GERD -No symptoms - Continue PPI daily while inpatient, can convert to proton Diet: DM 1 CODE STATUS: DNR, DNI. Discussed with patient at bedside Disposition: PCU for DKA Admission and Anticipated Discharge Date Admission Date: June 02, 2023 Supervising Physician Co-Signing Physician Notes I personally examined the patient and verified all gillespie points of history and exam, discussed case, and agree with decision making with Dr Osiel Temple Feeling okay. No longer nausea vomiting. Notes that most of the time whenever her sugars suddenly spike on her she is able to oriented and, therefore she wonders if the cartridge in her pump went bad. she will be able to use a new cartridge in her pump tomorrow and is anticipating starting her own pump again tomorrow morning and seeing how she does. Vitals noted, in general she is awake and alert pleasant no distress. HEENT normocephalic atraumatic mucous membranes moist. Breathing unlabored no accessory muscle use good good effort. Skin shows no rashes no pallor or icterus. DKAunclear if initiated due to physiologic stress from viral illness, or if her insulin in her cartridge was faulty. Either way improving. Understandably she is reticent to go back to her pump without a new cartridge, and given that this can be started tomorrow, will utilize subcu basal bolus for today. Start insulin pump again tomorrow morning, and as long as her sugars stay reasonable and she feels well through breakfast, lunch and the mid afternoonanticipate home. Barbi Lester is a 67 y/o female with PMH: type 1 diabetes, benign essential HTN, gastroparesis, hyperlipidemia. Presented yesterday with hyperglycemia associated with nausea and vomiting. Here for treatemnt of DKA, presented acidotic 7.21, bicarb at 18 and anion jonathan of 23. Today evaluated, found in NAD. No vomits or nausea. She refers some headache that she attribute it to he sinuses. Today Anion gap resolved today at 3, bicarb at 28. Staring diet today, no vomiting or nausea Review of Systems Review of Systems: All systems reviewed & are unremarkable except as noted in HPI & below Physical Exam Constitutional: WD/WN, vitals as above Eyes: PERRL, conjunctivae normal, anicteric sclerae Respiratory: normal respiratory effort, lungs clear to auscultation Cardiovascular: RRR, no murmur, no edema Chest (Breasts): normal inspection/palpation of breasts Gastrointestinal (Abdomen): normal bowel sounds, soft, nontender, no hepatosplenomegaly Results & Data Results & Data Vital Signs (Past 12 Hours) Vital Signs Temp Pulse Resp BP Pulse Ox Pulse Ox O2 Del Method 06/03/23 02:32 37 C 87 18 107/47 L 95 Room Air 06/02/23 22:56 37 C 90 18 117/48 L 97 Room Air 06/02/23 20:15 37.2 C 102 H 20 130/53 L 94 Room Air 06/02/23 20:40 94 06/02/23 20:15 Room Air 06/02/23 20:15 37.2 C 102 H 20 130/53 L 94 Room Air O2 Del Method 06/03/23 02:32 06/02/23 22:56 06/02/23 20:15 06/02/23 20:40 Room Air 06/02/23 20:15 06/02/23 20:15 Resident Activity Tracking Resident Involvement: Resident Care Provided Care Provided: Adult Hospital Medicine
[2023-06-03 08:27] LABS: BUN Creatinine Ratio 35.2 (10-20); Calcium 8.6 mg/dl (8.6-10.3); Creatinine Clr Calc Pharmacy 55.8 ml/min; Est GFR (African American) 78.8 ml/min; Magnesium 1.8 mg/dl (1.7-2.4); Phosphorus 3.1 mg/dl (2.5-4.9); Potassium 3.9 mmol/L (3.5-5.1)
[2023-06-03] MEDS: INSULIN ASPART PER UNIT CHARGE SC SCH ×3 (08:53→20:11)
[2023-06-03] MEDS ORDERED: DEXTROSE 50% 50 ML SYRINGE IV PRN (11:36)
[2023-06-03] MEDS ORDERED: CARBOHYDRATES FOR HYPOGLYCEMIA PO PRN (11:36)
[2023-06-03] MEDS ORDERED: GLUCAGON FOR INJ 1 MG VIAL SQ PRN (11:36)
[2023-06-03] MEDS ORDERED: GLUCOSE 10 TAB/TUBE PO PRN (11:36)
[2023-06-03] MEDS ORDERED: GLUCOSE 40% GEL 15 GM TUBE PO PRN (11:36)
[2023-06-03] MEDS ORDERED: LANTUS PER UNIT CHARGE SQ SCH ×2 (11:45→21:00)
[2023-06-03 12:28] LABS: BUN Creatinine Ratio 33.7 (10-20); Creatinine Clr Calc Pharmacy 55.2 ml/min; Est GFR (African American) 77.7 ml/min; Est GFR (Non-African American) 67.1 ml/min; Magnesium 1.9 mg/dl (1.7-2.4); Phosphorus 2.6 mg/dl (2.5-4.9); Potassium 4.2 mmol/L (3.5-5.1)
[2023-06-03] MEDS ORDERED: PANTOprazole 40 MG TAB PO ONE (13:10)
--- NOTE | 2023-06-03 17:14 | Billing Data ---
Date of Service June 03, 2023 Coding Level of Care Code 39954 SUB INP/OBS CARE MIN
[2023-06-03] MEDS ORDERED: ONDANSETRON INJ 2 MG/ML 2 ML VIAL IV PRN (17:51)
[2023-06-03] MEDS ORDERED: FAMOTIDINE 20 MG in SYRINGE 3 ML IV ONE (18:15)
[2023-06-03] MEDS: FAMOTIDINE 20 MG in SYRINGE 3 ML IV SCH (20:12)
--- NOTE | 2023-06-04 06:39 | Hospitalist Progress Note ---
Date of Service June 04, 2023 Assessment & Plan (1) Type 1 diabetes mellitus with long-term current use of insulin: (2) Hyperlipidemia: (3) Hypothyroidism: (4) Rheumatoid arthritis: (5) GERD (gastroesophageal reflux disease): (6) Benign essential hypertension: Plan Type 1 diabetes mellitus, DKA -Elevated anion gap, low bicarb, acidosis at 7.21, and hyperglycemic to 530s on admission - uses insulin pump at home, baseline - No nausea, no vomiting since admission She denies infectious symptoms other than a "very slight rare dry cough ". No dysuria, denies abdominal pain, no cough, no skin wounds/cellulitis On DKA protocol -Insulin drip -B -Will discontinue insulin drip today and transition to SQ insulin - Negative Covid 19, Lyme disease, Anaplasma. - Anion gap resolved: 3, Bicarb: 23 - Progressed diet today -Continue monitoring glucose -CMP am [place] essential HTN - Lisinopril, triam-hctz -Operatively held with severe volume depletion and DKA, borderline MAURICIO Trend creatinine daily. Baseline is 0.7, 1.2 on admission Anticipate resuming 06/04 Hyperlipidemia -Continue home meds Hypothyroidism - Continue Synthroid Rheumatoid arthritis -Methotrexate hold on admission GERD -No symptoms - Continue PPI daily while inpatient, can convert to proton Diet: DM 1 CODE STATUS: DNR, DNI. Discussed with patient at bedside Disposition: PCU for DKA Admission and Anticipated Discharge Date Admission Date: June 02, 2023 Barbi Lester is a 67 y/o female with PMH: type 1 diabetes, benign essential HTN, gastroparesis, hyperlipidemia. Presented yesterday with hyperglycemia associated with nausea and vomiting. Here for treatemnt of DKA, presented acidotic 7.21, b icarb at 18 and anion jonathan of 23. Today evaluated, found in NAD. No vomits or nausea. She refers some headache that she attribute it to he sinuses. Today Anion gap resolved today at 3, bicarb at 28. Staring diet today, no vomiting or nausea Review of Systems Review of Systems: All systems reviewed & are unremarkable except as noted in HPI & below Results & Data Results & Data Vital Signs (Past 12 Hours) Vital Signs Temp Pulse Pulse Resp BP Pulse Ox O2 Del Method 06/04/23 03:00 36.9 C 90 14 117/65 96 Room Air 06/03/23 22:51 71 10/28/23 22:43 36.6 C 66 18 107/55 L 97 Room Air 06/03/23 19:27 36.9 C 75 18 100/57 L 94 Room Air
[2023-06-04] MEDS: INSULIN ASPART PER UNIT CHARGE SC SCH ×2 (08:51→11:16)
[2023-06-04] MEDS: FAMOTIDINE 20 MG in SYRINGE 3 ML IV SCH (08:51)
[2023-06-04] MEDS: ACETAMINOPHEN 325 MG TAB PO PRN ×2 (08:58→13:32)
[2023-06-04 09:18] LABS: Basophils # (auto) 0.04 K/uL (0.00-0.20); Basophils % (auto) 0.5 %; Eosinophils # (auto) 0.09 K/uL (0.00-0.50); Eosinophils % (auto) 1.2 %; Hematocrit (blood only) 33.1 % (37.0-47.0); Hemoglobin 11.5 g/dl (12.0-16.0); Immature Granulocytes # (auto) 0.03 K/uL (0.01-0.20); Immature Granulocytes % (auto) 0.4 %; Lymphocytes # (auto) 1.64 K/uL (1.20-3.40); Lymphocytes % (auto) 22.5 %; Mean Corpuscular Hemoglobin 33.3 pg (25.0-34.0); Mean Corpuscular Hgb Conc 34.7 g/dL (32.0-36.0); Mean Corpuscular Volume 95.9 fL (80.0-100.0); Mean Platelet Volume 10.4 fL (9.4-12.4); Monocytes # (auto) 0.37 K/uL (0.11-0.59); Monocytes % (auto) 5.1 %; Neutrophils # (auto) 5.12 K/uL (1.40-6.50); Neutrophils % (auto) 70.3 %; Platelet Count 211 K/uL (130-400); RDW Coefficient of Variation 13.6 % (11.5-14.5); RDW Standard Deviation 47.4 fL (36.4-46.3); Red Blood Count 3.45 M/uL (4.20-5.40); White Blood Count 7.29 K/ul (4.8-10.8)
[2023-06-04] MEDS ORDERED: CALCIUM CARBONATE 500 MG CHEWABLE TAB PO PRN (13:35)
--- NOTE | 2023-06-04 16:00 | Discharge Summary ---
Date of Service June 04, 2023 Admission HPI Per Admitting Provider Tayler is a 67-year-old female with a past medical history of type 1 diabetes, benign essential hypertension, gastroparesis, hyperlipidemia, hypothyroidism who presents with hyperglycemia over the last 2 days which is also associated with nausea and vomiting.She has received 3 L of crystalloid and insulin drip has been initiated in the ER. She is admitted for treatment of DKA. Per ER review Leukocytosis of 17, acidotic at 7.21, bicarb is depressed at 18 with an anion gap of 23, BSG 530s. CTA/P shows moderate fecal retention, and pulmonary nodules requiring 6-month follow-up CT but no acute infection or process. CXR is without acute findings. Respiratory quad screen is negative. UA is not infected appearing. ___ Per Pt Peeing much less just since this morning. Previously peeing more last 2 days and 3- and 6am, then had not peed since. +night sweats. "Very minimal" dry cough. No sob. no dyspnea. No chest pain or chest pressure. +N/v, nonbloody. Denies abdominal pain. No diarrhea or constipation. No rash, skin changes. No tick bites. Uses an insulin pump for T1DM. Deactivated at time of hospitalist assessment. Basal 13.45u per day. Pt is not sure Carb ratio is 15. CF 70. Emesis nonbloody, nonbilious. Pt is methotrexate BID for RA. Did not take this today/yesterday. Medical History: Reviewed Medications: Reviewed Surgical History: Reviewed Family history: Reviewed Allergies: Reviewed Social History: No mtobacco/etoh Code Status: DNR/DNI, confirmed with pt at bedside Admission Exam Per Admitting Provider General: A&Ox3. NAD. Cooperative. HEENT: Atraumatic, normocephalic. MM dry. Vision/hearing intact. No photosensitivity or nuchal rigidity. Pulm: CTAB A&P. -wheezes, -rales, -rhonchi. Symmetrical chest rise. No increased work of breathing. No respiratory distress. Cardiac:Regular, tachycardic. -mrg. Radial pulses intact and symmetrical. Abdominal: Nontender, nondistended, soft. BS present. Ext: warm, dry. no rashes. distal extremity strength and sensation intact without asymmetry/deficit Principal Diagnosis DKA Discharge Exam Constitutional WD/WN, vitals as above Eyes PERRL, conjunctivae normal, anicteric sclerae Respiratory normal respiratory effort, lungs clear to auscultation Cardiovascular RRR, no murmur, no edema Gastrointestinal (Abdomen) normal bowel sounds, soft, nontender, no hepatosplenomegaly Musculoskeletal no cyanosis or clubbing, extremities motor strength 5/5 Neurologic PERRL, EOMI, accommodation nl, no face palsy, no dysarthria Discharge Data Allergies Allergy/AdvReac Type Severity Reaction Status Date / Time ezetimibe [From Zetia] Allergy Intermediate heart Verified 06/02/23 17:32 racing nickel Allergy Mild Rash Verified 06/02/23 17:32 Consultations 06/02/23 16:58 ED Decision to Admit Stat Ordered Studies 06/02/23 15:00 CT Abd and Pelvis [CT abd pelvis IV con only] Stat Hospital Course (1) Type 1 diabetes mellitus with long-term current use of insulin: (2) Hyperlipidemia: (3) Hypothyroidism: (4) Rheumatoid arthritis: (5) GERD (gastroesophageal reflux disease): (6) Benign essential hypertension: Plan Plan Type 1 diabetes mellitus, DKA -Elevated anion gap, low bicarb, acidosis at 7.21, and hyperglycemic to 530s on admission - 2 days of nausea and vomiting - uses insulin pump at home She denies infectious symptoms other than a "very slight rare dry cough ". No dysuria, denies abdominal pain, no cough, no skin wounds/cellulitis -Bad batch of insulin as provoking factor versus occult infection without clear source. - DKA protocol -Insulin drip -Patient transitioned to SQ insulin then to her insulin pump - Negative Covid 19, Lyme disease, Anaplasma. -Tolerating food, no nausea, no vomiting -Anion gap resolved: 3, Bicarb: 23 [place] essential HTN - Lisinopril, triam-hctz -Operatively held with severe volume depletion and DKA, borderline MAURICIO Trend creatinine daily. Cr on discharge 0.89 at baseline -Resumed at discharge Hyperlipidemia -Continue home meds Hypothyroidism - Continue Synthroid Rheumatoid arthritis -Methotrexate GERD -No symptoms - Continue PPI daily while inpatient Total Time Total Time Spent Total Time Spent (In Minutes): <30 Discharge Plan Discharge Items Patient Disposition: Home - Self-Care Reason For Visit: DKA Discharge Diagnosis: DKA Activity: Resume your previous activity Non-emergency contact: Primary Care Provider Call non-emergency contact if: you have any medication questions and your symptoms worsen Follow-up/Referrals: Pro,Aris Gaming MD [Primary Care Provider] - Diet: Carb Count or DM1 Addtl Attending Provider Instructions: You were admitted to [facility] due to symptoms of Diabetes ketoacidosis. This happens when body is deficient in insulin and start breaking down fat at a rate that is much fast. This causes the blood to become acidic and become toxic. You were treated with fluids and insulin drip to get your blood sugar down to baseline. After you were stable we transitioned you to your insulin pump. We watched you and make sure your insulin pump worked as it supposed We think the causes of this was an underline virus that put your body on stress vs a faulty vial of insulin Follow-up appointments: Make a follow-up appointment with your PCP within the next week. It is very important that you follow up with them shortly after discharge from the hospital. Its important to make sure that ypur insulin pump is working correctly. Medications: Your medication list has been reviewed and reconciled upon discharge to ensure accuracy and continuity of care. An updated list of all your medications is included with your hospital discharge paperwork. Please review this list closely, and make note of any changes. CALL 911 OR GO TO THE EMERGENCY DEPARTMENT if you experience any of the fo llowing: Sudden, severe abdominal pain or nausea/vomiting Severe chest pain, or chest pain that radiates (moves) to your jaw or arm Sudden, severe shortness of breath or difficulty breathing Pending Studies at Discharge: No Stand-Alone Forms: My [facility], Smoking Cessation Medications and DC Order Prescriptions: Continued (DME) blood sugar diagnostic Strip See Rx Instructions .ROUTE .MEDSUPPLY Qty: 400 3RF Rx Instructions: Test 4 times daily (DME) blood-glucose meter [OneTouch Ultra2 Meter] [facility] See Rx Instructions .Route Qty: 1 0RF Rx Instructions: LIFESCAN ONETOUCH DIRECTED (DME) OneTouch Ultra Test Strip See Rx Instructions .Route Qty: 400 2RF Rx Instructions: LIFE SCAN Test 4 times daily Dx E11.9 Onetouch esomeprazole magnesium [Nexium] 20 mg capsule,delayed release(DR/EC) 20 mg PO DAILY Qty: 90 3RF Patient Comments: pt states she is recently not taking this med (DME) Omnipod Dash Pods (Gen 4) Cartridge See Rx Instructions .Route Qty: 30 5RF Rx Instructions: Change pod every 3 days (DME) Blood Glucose Test Strip See Rx Instructions .Route Qty: 400 0RF Rx Instructions: LIFESCAN Test 4 times daily (DME) blood-glucose meter [Blood Glucose Monitoring] Kit See Rx Instructions .Route Qty: 1 0RF Rx Instructions: LIFESCAN MONITOR Test 4 times daily insulin aspart U-100 [Novolog U-100 Insulin aspart] 100 unit/mL solution 130 unit subcut DAILY Qty: 110 3RF lisinopril 20 mg tablet 20 mg PO QAM Qty: 90 3RF triamterene-hydrochlorothiazid 37.5-25 mg tablet 1 tab PO QAM Qty: 90 3RF pravastatin 40 mg tablet 40 mg PO QPM Qty: 90 3RF clobetasol 0.05 % ointment 1 applic topical BID Qty: 30 1RF levothyroxine 112 mcg tablet 112 mcg PO QAM Qty: 90 1RF omega-3 acid ethyl esters 1 gram capsule 1 cap PO BID folic acid 1 mg tablet 1 mg PO QPM melatonin 3 mg capsule 3 mg PO HS PRN (Reason: Sleep) multivitamin Tablet 1 tab PO QAM cetirizine [Zyrtec] 10 mg Tablet 10 mg PO DAILY PRN (Reason: Allergy Symptoms) cyanocobalamin (vitamin B-12) [Vitamin B-12] 1,000 mcg Tablet 1,000 mcg PO QAM aspirin [Aspir-81] 81 mg Tablet,Delayed Release (Dr/Ec) 81 mg PO QAM cholecalciferol (vitamin D3) [Vitamin D3] 1,000 unit Capsule 1,000 unit PO QPM Probiotic 3 billion cell Capsule 3,000 mmu cells PO QPM biotin 1,000 mcg Tablet,Chewable 1,000 mcg PO QAM methotrexate sodium 2.5 mg tablet 10 mg PO AMPM Rx Instructions: Take q fri fluticasone propionate [Allergy Relief (fluticasone)] 50 mcg/actuation spray,suspension 1 spray intranasal DAILY PRN (Reason: Nasal Congestion) Rx Instructions: administer into each nostril Eye Ointment 1 applic PO HS Discharge Orders: Discharge Order (Routine); Ordered 06/04/23 Ordered By: Trav Black/Other Patient Handouts: High Blood Sugar (Hyperglycemia), Managing Type 1 Diabetes, Diabetes: Sick-Day Plan Admission Data Admit Date/Time: 06/02/23 17:21 Attending Provider: Ted Arreola Admit Provider: Lexa Evans Primary Care Provider: Aris Denton Other Providers: Lexa Evans Other Interventions: Discharge Summary Assessment (RN) Last Done: 06/04/23 14:18 Supervising Physician Co-Signing Physician Notes I personally examined the patient and verified all gillespie points of history and exam, discussed case, and agree with decision making with Dr Osiel Temple feeling good wants to go home sugars have been decent since getting things leveled out back on insulin pump. vitals noted nad heent nc at mmm breathing unlabored no accessory muscles good effort skin no rashes no pallor or icterus. DKAunclear if initiated due to physiologic stress from viral illness, or if her insulin in her cartridge was faulty. Either way improving and stable to go home. otherwise as above Resident Activity Tracking Resident Involvement: Resident Care Provided Care Provided: Pediatric Care
--- NOTE | 2023-06-04 19:19 | Billing Data ---
Date of Service June 04, 2023 Coding Level of Care Code 73196 IN/OBS DISCH 30 MIN/LESS
== END 2023-06-04 14:45 | disposition home or self-care (01) | DRG 639 ==
LOC: ED 13:31 → 2E 17:21 → SUATTDRO 17:21 → INTOOBSV 17:21 → 2E 19:05